=== PATIENT | male | born 1965 | race Caucasian/White ===

== ENCOUNTER → 2018-02-10 | Outpatient (CLI) | payer OTHER | LOC: COL.VAS 10:02 | DX: Z13.6 Encounter for screening for cardiovascular disorders (principal); M79.605 Pain in left leg; Z96.652 Presence of left artificial knee joint ==

== ENCOUNTER → 2018-07-19 | Outpatient (CLI) | payer OTHER | LOC: COL.RAD 09:21 | DX: M25.562 Pain in left knee (principal); Z96.652 Presence of left artificial knee joint | CPT/HCPCS: A9503 ==

== ENCOUNTER 2019-07-06 11:40 | Inpatient (IN) | payer BC ==
[~2019-07-06] VITALS: Ht 193 cm; Wt 122.7 kg
[2019-07-06 12:12] LABS: ALANINE AMINOTRANSFERASE 32 U/L (4-49); ALBUMIN 4.3 gm/dL (3.5-5.0); ALKALINE PHOSPHATASE 61 U/L (50-136); ANION GAP 8 mmol/L (7-16); AST,SGOT 32 U/L (15-37); BILIRUBIN,TOTAL 0.9 mg/dL (0.0-1.0); BLOOD UREA NITROGEN 14 mg/dL (9-20); CALCIUM 9.6 mg/dL (8.4-10.2); CARBON DIOXIDE 24 mmol/L (22-30); CHLORIDE 105 mmol/L (98-107); CREATININE, serum 0.68 (0.66-1.25); GLUCOSE 106 mg/dL (74-106); LIPASE 78 U/L (23-300); POTASSIUM 4.4 mmol/L (3.4-5.0); SODIUM 138 mmol/L (137-145); TOTAL PROTEIN 7.4 gm/dL (6.4-8.2)
[2019-07-06 12:23] LABS: TROPONIN-I < 0.012 ng/mL (0.000-0.035)
[2019-07-06] MEDS ORDERED: HYTRIN 2MG CAPSU2 MG PO (12:36)
[2019-07-06] MEDS ORDERED: CELEBREX 200MG200 MG PO (12:36)
[2019-07-06 13:21] LABS: BASO # 0.1 (0.0-0.2); BASO % 0.7 % (0.0-2.0); EOS # 0.2 (0.0-0.7); EOS % 2.8 % (0-4.0); GRAN # 4.2 (1.4-6.5); GRAN % 59.9 % (42.2-75.2); HEMATOCRIT 44.3 % (42.0-52.0); HEMOGLOBIN 15.3 g/dl (13.5-18.0); LYMPH % 28.5 % (20.0-51.0); MEAN CELL VOLUME 89 fl (80.0-100.0); MEAN CORPUSCULAR HEMOGLOBIN 31 pg (27.0-31.0); MEAN CORPUSCULAR HGB CONC 35 g/dl (33.0-37.0); MEAN PLATELET VOLUME 9.7 fl (7.4-10.4); MONO # 0.6 (0.1-0.6); MONO % 7.8 % (1.7-9.3); PLATELET COUNT 204 K/mm3 (130-400); RED BLOOD COUNT 4.98 M/mm3 (4.20-5.60)
[2019-07-06 13:27] LABS: INR 1.1 (0.8-3.0); PROTHROMBIN TIME 12.4 SECONDS (9.7-12.8)
[2019-07-06 16:02] VITALS: BP 117/85; PULSE 86; TEMP 98.4
--- NOTE | 2019-07-06 18:36 | NUR ---
PT ADMITTED TO FLOOR THIS AFTERNOON. NO C/O CHEST PAIN OR PALAPTIONS AT THIS TIME. ADMINISTERED FIRST DOSE OF SOTOLOL. PT IS NORMAL SINUS AT THIS TIME. PT HAD CALLED AND TOLD THIS NURSE THAT SHE TALKED TO SALLY AT HIS OFFICE AND THE HEART CATH IS PLANNED FOR THURSDAY. NO NOTES OR ORDERS IN ABOUT WHEN THIS IS YET, LET HER KNOW THAT. NO OTHER ISSUES OR CONSERNS VOICED AT THIS TIME.
[2019-07-06 19:35] VITALS: BP 114/74; PULSE 81; TEMP 98.5
--- NOTE | 2019-07-06 20:00 | NUR ---
Patient assessed at this time. Alert and oriented x 4, and able to make needs known. Denies having pain and discomfort at this time. Peripheral IV to right AC. Denies SOB and dyspnea. LS CTA. Respirations even and unlabored. HRR. Telemetry in place. Capillary refill less than 3 seconds. Non-tenting skin turgor. BSAx4. Abdomen soft and non-tender. No edema. Voices no questions, needs, or concerns at this time. Resting in bed with call light within reach.
[2019-07-06 23:46] VITALS: BP 103/66; PULSE 71; TEMP 98
[2019-07-07 04:11] VITALS: BP 98/58; PULSE 59; TEMP 98.6
--- NOTE | 2019-07-07 05:44 | NUR ---
Patient has been resting in bed with eyes closed. Has denied having chest pain and discomfort. Telemetry continues to show patient is in normal sinus rhythm. Voices no questions, needs, or concerns. Resting in bed with call light within reach.
[2019-07-07 05:54] LABS: BASO # 0.1 (0.0-0.2); BASO % 0.8 % (0.0-2.0); EOS # 0.3 (0.0-0.7); EOS % 4.3 % (0-4.0); GRAN # 3.4 (1.4-6.5); GRAN % 54.1 % (42.2-75.2); HEMATOCRIT 40.8 % (42.0-52.0); HEMOGLOBIN 13.9 g/dl (13.5-18.0); LYMPH % 32.1 % (20.0-51.0); MEAN CELL VOLUME 90 fl (80.0-100.0); MEAN CORPUSCULAR HEMOGLOBIN 31 pg (27.0-31.0); MEAN CORPUSCULAR HGB CONC 34 g/dl (33.0-37.0); MEAN PLATELET VOLUME 10.2 fl (7.4-10.4); MONO # 0.5 (0.1-0.6); MONO % 8.5 % (1.7-9.3); PLATELET COUNT 186 K/mm3 (130-400); RED BLOOD COUNT 4.53 M/mm3 (4.20-5.60)
[2019-07-07 07:03] LABS: CALCIUM 8.9 mg/dL (8.4-10.2); CREATININE, serum 0.78 (0.66-1.25); MAGNESIUM 1.9 mg/dL (1.6-2.3)
[2019-07-07 07:40] VITALS: BP 107/74; PULSE 71; TEMP 98.5
--- NOTE | 2019-07-07 09:36 | NUR ---
Patient is awake and alert in room, is alert and oriented x4. Denying pain. Does have a little swelling around his ankles, states is normal for him. He did state that he had woke up and his hands felt like they were asleep and he never had expeienced that before. I told him that I would speak to the doctor and he stated that he would do it when they came around. I did state that it was no problem to call and he stated it was fine he would report when they came around. He is not having pain. Respirations are even and nonlabored. Patient has been ordered heart cath for this afternoon. Consent to be obtained. Diet order has been changed to NPO for lunch. No other needs verbalized. Call light and personal items are within reach.
--- NOTE | 2019-07-07 12:23 | NUR ---
First visit from the scanning coordinator. No needs right now.
--- NOTE | 2019-07-07 13:55 | NUR ---
Local [employer]ination [employer] met with patient to discuss discharge planning. Patient lives in [place] with his , Kay (ph#[phone]) and his mother who is 86. Patient advised that he came to the hospital in [place] because his management planner is here and his works at [employer]. Patient sees Dr. Payan for primary care and obtains medications from [facility] in [place] with no difficulties. Patient advised he is supposed to use a CPAP but chooses not to. Patient is independent with ADLS and plans to return home upon discharge. Patient does not have DPOA-HC and advised that he and his have been discussing this but have not set it up yet. SW to continue to follow as needed.
[2019-07-07 15:10] VITALS: BP 123/77; PULSE 65; TEMP 98.2
--- NOTE | 2019-07-07 18:54 | NUR ---
Patient has had uneventful shift. No pain. Call light and personal items are within reach.
[2019-07-07 20:12] VITALS: BP 117/66; PULSE 54; TEMP 99.1
--- NOTE | 2019-07-07 21:10 | NUR ---
Patient assessed at this time. Alert and oriented x 4, and able to make needs known. Denies having pain and discomfort at this time. Peripheral IV to right AC. Denies SOB and dyspnea. LS CTA. Respirations even and unlabored. HRR. Telemetry in place. Capillary refill less than 3 seconds. Non-tenting skin turgor. BSAx4. Abdomen soft and non-tender. No edema. Voices no questions, needs, or concerns at this time. Patient aware of heart cath tomorrow and being NPO after midnight. Call light within reach.
[2019-07-08] VITALS (172 sets, daily range): BP systolic 99–142; BP diastolic 55–88; PULSE 48–84; TEMP 97.9–98.2; O2SAT 92–97
--- NOTE | 2019-07-08 05:08 | NUR ---
Patient has been resting in bed. Has been NPO since midnight. Voices no questions, needs, or concerns at this time. Call light is within reach.
[2019-07-08 06:02] LABS: HEMATOCRIT 39.2 % (42.0-52.0); HEMOGLOBIN 13.3 g/dl (13.5-18.0); MEAN CELL VOLUME 91 fl (80.0-100.0); MEAN CORPUSCULAR HEMOGLOBIN 31 pg (27.0-31.0); MEAN CORPUSCULAR HGB CONC 34 g/dl (33.0-37.0); MEAN PLATELET VOLUME 10.3 fl (7.4-10.4); PLATELET COUNT 181 K/mm3 (130-400); RED BLOOD COUNT 4.31 M/mm3 (4.20-5.60); REDCELL DISTRIBUTION WIDTH-CV 12.9 % (11.5-14.5)
[2019-07-08 06:09] LABS: INR 0.9 (0.8-3.0); PROTHROMBIN TIME 10.6 SECONDS (9.7-12.8)
[2019-07-08 06:14] LABS: CALCIUM 8.3 mg/dL (8.4-10.2); CREATININE, serum 0.82 (0.66-1.25); MAGNESIUM 1.9 mg/dL (1.6-2.3); POTASSIUM 3.9 mmol/L (3.4-5.0)
--- NOTE | 2019-07-08 08:03 | NUR ---
Pt awake and alert upon entry, no C/O pain at this time, pre-op fluids started, shift assessments complete, left pt call light in reach, bed in lowest position.
--- NOTE | 2019-07-08 08:32 | NUR ---
SEE MERGE DOCUMENTATION FOR MEDICATION ADMINISTRATION TIMES AND INTRA/POST PROCEDURE SEDATION ASSESSMENTS.
[2019-07-08] MEDS ORDERED: ELIQUIS 5MG PO (10:38)
[2019-07-08] MEDS ORDERED: BETAPACE 80MG80 MG PO (10:38)
[2019-07-08] MEDS ORDERED: ASPIRIN E.C. 8181 MG PO (10:38)
--- NOTE | 2019-07-08 10:51 | NUR ---
Pt arrived to room at si time with blender laborer staff. Resting in bed, doing well, requesting ice water and food, will continue to monitor. R radial access site is clean and dry, will continue to monitor.
--- NOTE | 2019-07-08 12:37 | NUR ---
Per Dr. Aguirre, stop nitro gtt
--- NOTE | 2019-07-08 16:10 | NUR ---
Discharge teaching completed at this time. Pt received discharge packet, f/u appts and new scripts reviewed. Answered all questions. INT dc'd, tip itnact. Pt escorted out via w/c with all belongings, to drive home, criteria met.
== END 2019-07-08 16:10 | disposition home or self-care (01) | DRG 287 ==
LOC: COL.ER 11:40 → MEDICAL 12:33 → IMCU 12:33 → MEDICAL 15:00 → IMCU 07-08 09:30
PROVIDERS: Emergency Medicine; Nurse Practitioner; Physician Assistant; ADMIT Internal Medicine
PROC: 5A2204Z Restoration of Cardiac Rhythm, Single (ICD-10-PCS; 2019-07-06)
PROC: 4A023N7 Measurement of Cardiac Sampling and Pressure, Left Heart, Percutaneous Approach (ICD-10-PCS; principal; 2019-07-08)
PROC: B2111ZZ Fluoroscopy of Multiple Coronary Arteries using Low Osmolar Contrast (ICD-10-PCS; 2019-07-08)
DX: I48.92 Unspecified atrial flutter (principal); N40.0 Benign prostatic hyperplasia without lower urinary tract symptoms; I45.6 Pre-excitation syndrome; R00.1 Bradycardia, unspecified; G47.33 Obstructive sleep apnea (adult) (pediatric); I10 Essential (primary) hypertension; M19.90 Unspecified osteoarthritis, unspecified site; Z86.718 Personal history of other venous thrombosis and embolism; Z96.652 Presence of left artificial knee joint; Z96.642 Presence of left artificial hip joint
CPT/HCPCS: 99222-AI; 99231-AI; 99239; J0153; J0583; J1644; J1650; J2250; J2704; J3010; J7030; Q9967

== ENCOUNTER 2021-11-27 08:29 | Day surgery (SDC) | payer BC ==
[2021-11-27] VITALS (14 sets, daily range): BP systolic 118–146; BP diastolic 68–103; PULSE 57–75; TEMP 98.3
[~2021-11-27] VITALS: Ht 193.1 cm; Wt 123.7 kg
[~2021-11-27 08:29] MED LIST: ASPIRIN E.C. 8181 MG PO; BETAPACE 80MG80 MG PO; CELEBREX 200MG200 MG PO; ELIQUIS 5MG PO; HYTRIN 2MG CAPSU2 MG PO
[2021-11-27 09:34] LABS: HEMOGLOBIN 14.3 g/dl (13.5-18.0); MEAN CELL VOLUME 89 fl (80.0-100.0); MEAN CORPUSCULAR HEMOGLOBIN 31 pg (27-31); MEAN CORPUSCULAR HGB CONC 35 g/dl (33.0-37.0); MEAN PLATELET VOLUME 9.7 fl (7.4-10.4); PLATELET COUNT 210 K/mm3 (130-400); RED BLOOD COUNT 4.63 M/mm3 (4.20-5.60); REDCELL DISTRIBUTION WIDTH-CV 12.5 % (11.5-14.5)
[2021-11-27 09:43] LABS: INR 0.9 (0.8-3.0); PROTHROMBIN TIME 10.8 SECONDS (9.7-12.8)
[2021-11-27 09:46] LABS: PARTIAL THROMBOPLASTIN TIME 32.2 SECONDS (26.0-37.0)
[2021-11-27 09:49] LABS: CALCIUM 9.2 mg/dL (8.4-10.2); CREATININE, serum 0.81 mg/dL (0.72-1.25); POTASSIUM 4.2 mmol/L (3.5-4.5)
[2021-11-27] MEDS ORDERED: NORVASC 10MG10 MG PO (09:55)
[2021-11-27] MEDS ORDERED: HYTRIN 2MG CAPSU2 MG PO (09:55)
[2021-11-27] MEDS ORDERED: ASPIRIN 81M81 MG/TA2 PO (09:56)
[2021-11-27] MEDS ORDERED: MOBIC15 MG PO (09:56)
[2021-11-27] MEDS ORDERED: CENTRUM SILVER1 CTB PO (09:57)
[2021-11-27] MEDS ORDERED: COZAAR 25MG25 MG/TAB PO (09:57)
[2021-11-27] MEDS ORDERED: COLACE 100100 MG/CAP PO (09:57)
[2021-11-27] MEDS ORDERED: ZYRTEC 10MG10 MG PO (09:58)
[2021-11-27] MEDS ORDERED: ULTRAM 50MG TAB50 MG PO (09:58)
[2021-11-27] MEDS ORDERED: KLONOPIN 0.5MG0.5 MG PO (09:59)
--- NOTE | 2021-11-27 11:23 | NUR ---
SEE MERGE FOR VITAL SIGNS, ASSESSMENTS, MEDICATIONS, AND INTERVENTIONS.
--- NOTE | 2021-11-27 11:47 | NUR ---
Report from Michael Sykes.Will await pts' return.
== END 2021-12-02 15:08 ==
LOC: COL.CAR 08:29
PROVIDERS: Internal Medicine Cardiovascular Disease
DX: R07.89 Other chest pain (principal); G47.33 Obstructive sleep apnea (adult) (pediatric); Z87.891 Personal history of nicotine dependence; I10 Essential (primary) hypertension; Z79.899 Other long term (current) drug therapy; I48.3 Typical atrial flutter; Z79.01 Long term (current) use of anticoagulants
CPT/HCPCS: C1760; C1894; J2250; J3010; Q9967